=== PATIENT | male | born 1950 | race Hispanic/Latino ===

== ENCOUNTER → 2024-04-29 | Outpatient (CLI) | payer OTHER | END | disposition home or self-care (01) | LOC: RAH 13:04 | PROVIDERS: ATTEND Internal Medicine Cardiovascular Disease | DX: Z13.6 Encounter for screening for cardiovascular disorders (principal) | CPT/HCPCS: 75571 ==

== ENCOUNTER → 2024-09-23 | Outpatient (CLI) | payer OTHER ==
--- NOTE | 2024-09-24 08:26 | HMCSR ---
APPROVED REPORT Laterality: Bilateral Indications PVD VELOCITY AND DOPPLER WAVEFORM ANALYSIS STEEL FLOOR PAN PLACING SUPERVISOR (R) 93.0cm/sec, Triphasic, STEEL FLOOR PAN PLACING SUPERVISOR (L) 88.8cm/sec, Triphasic, Prof Fem Art. (R) 115.8cm/sec, Biphasic, Prof Fem Art. (L) 79.9cm/sec, Biphasic, Fem Art Prox. (R) 97.8cm/sec, Triphasic, Fem Art Prox. (L) 84.0cm/sec, Triphasic, Fem Art Mid. (R) 71.8cm/sec, Triphasic, Fem Art Mid. (L) 90.5cm/sec, Triphasic, Fem Art Dist (R) 96.0cm/sec, Triphasic, Fem Art Dist. (L) 68.3cm/sec, Triphasic, Pop Art(AK) (R) 59.4cm/sec, Triphasic, Pop Art (AK) (L) 53.8cm/sec, Triphasic, Pop Art (Fossa)(R) 59.0cm/sec, Triphasic, Pop Art (Fossa) (L) 60.0cm/sec, Triphasic, Pop Art(BK) (R) 90.5cm/sec, Triphasic, Pop Art (BK) (L) 80.8cm/sec, Triphasic, MEDIA STRATEGIST Prox. (R) 52.7cm/sec, Biphasic, MEDIA STRATEGIST Prox. (L) 44.9cm/sec, Biphasic, MEDIA STRATEGIST Mid. (R) 62.2cm/sec, Biphasic, MEDIA STRATEGIST Mid. (L) 39.0cm/sec, Biphasic, MEDIA STRATEGIST Dist. (R) 42.6cm/sec, Monophasic, MEDIA STRATEGIST Dist. (L) 44.4cm/sec, Biphasic, Per Art Prox. (R) 87.0cm/sec, Biphasic, Per Art Prox. (L) 33.8cm/sec, Biphasic, Per Art Mid. (R) 52.2cm/sec, Biphasic, Per Art Mid. (L) 20.8cm/sec, Monophasic, Per Art Dist. (R) 84.0cm/sec, Biphasic, Per Art Dist. (L) 74.2cm/sec, Monophasic, VY Prox. (R) 98.7cm/sec, Biphasic, VY Prox. (L) 98.7cm/sec, Biphasic, YV Mid. (R) 46.5cm/sec, Monophasic VY Mid. (L) 67.3cm/sec, Biphasic, VY Dist. (R) 44.9cm/sec, Monophasic, VY Dist. (L) 127.3cm/sec, Biphasic, Technologist Impression Diffuse atherosclerosis throughout the bilateral lower extremities. InfraPopliteal disease seen bilaterally. Conclusion Bilateral infrapopliteal disease as above. Conclusion Bilateral infrapopliteal disease as above.
== END | disposition home or self-care (01) ==
LOC: SHCH 10:56
PROVIDERS: ATTEND Internal Medicine Cardiovascular Disease
DX: I73.9 Peripheral vascular disease, unspecified (principal); I70.90 Unspecified atherosclerosis
CPT/HCPCS: 93925

== ENCOUNTER 2024-11-12 05:55 | Day surgery (SDC) | payer OTHER ==
[2024-11-10 15:33] VITALS: BP 111/62; PULSE 75; RESP 14; TEMP 98.1
[2024-11-12] VITALS (9 sets, daily range): BP systolic 121–159; BP diastolic 63–84; PULSE 61–71; RESP 10–16; TEMP 97.2–97.7
[~2024-11-12] VITALS: Ht 177.8 cm; Wt 85.1 kg
[~2024-11-12 05:55] MED LIST: ASPI-1443 PO; CARV25TA PO; METF-444 PO; meclizine PO; rosuvastatin PO; xarelto PO
[2024-11-12] MEDS ORDERED: IODIXANOL 320 MG/ML 100 ML VIAL ONE (07:12)
[2024-11-12] MEDS ORDERED: HEParin-NS 1,000 UNIT/500 ML 1,000 ML IV ONE (07:12)
[2024-11-12] MEDS ORDERED: LIDOCAINE HCL 400MG/20ML VIAL ONE (07:12)
[2024-11-12] MEDS ORDERED: HEParin 10,000 UNIT/10ML (1,000 UNIT/ML) VIAL ONE (07:12)
[2024-11-12] MEDS ORDERED: MIDAZOLAM HCL 1 MG/ML 2ML VIAL ONE ×2 (07:28→09:10)
[2024-11-12] MEDS ORDERED: FENTanyl CITRate PF 50 MCG/1 ML 2ML VIAL ONE (07:28)
[2024-11-12] MEDS ORDERED: NITROGLYCERIN 50MG VIAL ONE (07:29)
[2024-11-12] MEDS: 0.9%NACL 1000ML 1,000 ML IV SCH (07:33)
[2024-11-12] MEDS ORDERED: HEParin-NS 1,000 UNIT/500 ML 500 ML IV ONE (08:48)
[2024-11-12] MEDS ORDERED: cloPIDOgrel 300MG TAB ONE (09:39)
[2024-11-12] MEDS ORDERED: 0.9%NACL 1000ML 1,000 ML IV SCH (10:00)
--- NOTE | 2024-11-12 10:10 | PRN ---
Procedure:Peripheral Angiogram Procedure Note Procedure Note: Peripheral Angiogram Date of Service: 11/12/2024 Referring Physician: Dr. Caity Leon Procedures Performed: Distal abdominal aortogram, right lower extremity peripheral angiogram, left common femoral angiogram Indications for Procedure: PAD, [place] category 3 symptoms (R>L) PAD, s/p multiple peripheral interventions in the arteries of the bilateral lower extremities Description of Procedure: [After informed consent was obtained the patient was prepped and draped in the usual sterile fashion a 6 [place]ic arterial sheath with a hemostatic valve was inserted into the left common femoral artery using a modified Salinger technique on the first pass front wall puncture. A 5 [place]ic Omni Flush catheter was then advanced over a soft angled Glidewire into the abdominal aorta and a lower abdominal aortogram with runoff was obtained. The findings are listed below. The Omni flush catheter was then advanced to the right external iliac artery and a right lower extremity arteriogram was obtained. The findings are listed below.] Findings: Lower abdominal aorta: patent Left common iliac artery: patent Left external iliac artery: patent Left internal iliac artery: patent Left common femoral artery: patent Right common iliac artery: patent Right external iliac artery: patent Right internal iliac artery: patent Right common femoral artery: patent Right profunda artery: patent Right superficial femoral artery: patent Right popliteal artery: patent Right anterior tibial artery: Diffuse 90-95% stenosis the distal segment of the artery Right tibioperoneal artery: patent Right peroneal artery: Diffuse 99% stenosis in the distal segment of the artery Right posterior tibial artery: 100% stenosis (CASE MANAGEMENT RN > 240 mm) in the proximal segments of the artery. The artery does not reconstitute distally Right pedal arch: Incomplete, with slow two-vessel runoff supplying the anterior and posterior segments of the right pedal arch. Intervention: After reviewing the above-mentioned findings the decision was made to intervene on the right anterior tibial and right peroneal artery. The soft angled glidewire was inserted into the Omni flush catheter was advanced to the right popliteal artery. We then removed the Omni flush catheter and exchanged the short six [place]ic arterial sheath for a 65 cm six Icelandic destination arterial sheath, which was then placed in the mid right superficial femoral artery. We then administered heparin 75 units/kg and clopidogrel 600 mg x 1 dose. We then advanced a 0.014 whisper guidewire and 0.014 quick cross catheter across the area stenosis in into the right dorsalis pedis artery. We then removed the whisper guidewire and injected contrast into the quick cross catheter to ensure that we are in the true lumen of the right dorsalis pedis artery. Once this was confirmed bleed reinserted the 0.014 whisper guidewire into the quick cross catheter and placed it in the distal right dorsalis pedis artery. We then removed the quick cross catheter and performed balloon lithotripsy (shockwave 3.0 x 80 mm) and balloon angioplasty (chocolate 3.0 x 80 mm) in the distal right anterior tibial artery. We then advanced a 2nd wire, 0.014 Fielder XT, into the distal right peroneal artery. We then performed balloon angioplasty (2.0 x 80 mm > chocolate 2.5 x 80 mm) and balloon lithotripsy (shockwave 3.0 x 80 mm) in the distal right peroneal artery. The balloons were then removed and repeat angiography was performed, which revealed a widely patent right anterior tibial artery and right peroneal artery, without dissection, or perforation, and brisk two-vessel runoff supplying the right foot/pedal arch. The guidewires and 65 cm six Icelandic destination arterial sheath were then removed and the arteriotomy site in the left common femoral artery was successfully closed using a six Fr ench Angio-Seal device. The patient tolerated the procedure well without issue. Estimated Blood Loss: [40]mL Complications: [ None] Conclusion: 1. PAD, [place] category 3 symptoms (R > L), diffuse 90-95% stenosis in the distal right anterior tibial artery status post successful treatment with balloon lithotripsy and balloon angioplasty, diffuse 90-95% stenosis in the distal right peroneal artery status post successful treatment with balloon angioplasty and balloon lithotripsy, resulting in widely patent arteries, without dissection, perforation, and brisk two-vessel runoff supplying the right foot/pedal arch. 2. Residual PAD, 100% stenosis in the proximal right posterior tibial artery. The artery does not reconstitute distally and thus is not amenable to percutaneous intervention. 3. Essential PAD affecting the left lower extremity. 4. HTN 5. HLP 6. DM2 Recommendations/Instructions: 1. Continue goal-directed medical therapy. 2. Continue aspirin 81 mg daily and Xarelto 2.5 mg BID. 3. Groin precautions 4. 4 hours of bedrest 5. Please start NS at 100 mL/hr x 3 hours 6. No driving x 48 hours 7. No strenuous activity or heavy lifting x 2 weeks. 8. The patient can be discharged home once his bedrest is compete and his femoral access site remains soft to palpation and free of significant bleeding, bruising, or hematoma formation. 9. We will bring the patient back within the next two weeks to address the residual PAD in the left lower extremity. CAITY LEON MD Nov 12, 2024 10:10
--- NOTE | 2024-11-12 13:45 | NUR ---
Full and complete discharge instructions given to Patient and Family both verbally and in writing. Explained Angiogram procedure precautions and follow up. All questions answered. PIV removed with catheter tip intact. Groin site and clean, dry without any sign of bleeding, bruising or hematoma. Home with Family W/C to POV.
== END 2024-11-12 14:00 | disposition home or self-care (01) ==
LOC: DAH 05:55
PROVIDERS: ATTEND Internal Medicine Cardiovascular Disease
DX: E11.51 Type 2 diabetes mellitus with diabetic peripheral angiopathy without gangrene (principal); I70.211 Atherosclerosis of native arteries of extremities with intermittent claudication, right leg; I10 Essential (primary) hypertension; E78.5 Hyperlipidemia, unspecified; G47.33 Obstructive sleep apnea (adult) (pediatric); I25.10 Atherosclerotic heart disease of native coronary artery without angina pectoris; Z79.899 Other long term (current) drug therapy; Z79.84 Long term (current) use of oral hypoglycemic drugs; Z98.890 Other specified postprocedural states; Z96.641 Presence of right artificial hip joint; Z83.3 Family history of diabetes mellitus; Z82.49 Family history of ischemic heart disease and other diseases of the circulatory system
CPT/HCPCS: 75630; 85347 ×2; 82948; C9772; C1887; C1725 ×4; C1894 ×2; C1769 ×3; C1760; C1893; J3010; J3490 ×2; J1644 ×3; J2250 ×2; Q9967; A4215; A4222; A4221; A4663; A4216; A4606; A4223 ×3; 36415; 75716; 96360; 96361; 99156; 99157

== ENCOUNTER 2025-05-21 10:28 | Inpatient (IN) | payer OTHER ==
[~2025-05-21] VITALS: Ht 177.8 cm; Wt 81.6 kg
[~2025-05-21 10:28] MED LIST changes: +MECL-226 PO; +ROSU10TA98 PO; -meclizine PO; -rosuvastatin PO
--- NOTE | 2025-05-21 10:39 | EKG ---
[facility] Test Date: 2025-05-21 Test Time: 10:34:05 Pat Name: MIGUEL ANGEL TUBBS Department: [facility] Room: Gender: M Signal Repairer: [id number] : 1950 Requested By: SHANEKA ODEN Order Number: [id number] Reading MD: Elaine Walton Measurements Intervals [place] Rate: 73 P: 12 TN: 219 QRS: -10 QRSD: 89 T: 39 QT: 367 QTc: 406 Interpretive Statements Sinus rhythm Borderline prolonged TN interval No previous ECG available for comparison Electronically Signed On 05-21-2025 13:12:57 CDT by Elaine Walton Please click the below link to view image of tracing.
[2025-05-21 11:20] LABS: IMMATURE GRANULOCYTE ABSOLUTE 0.02 K/uL (0-1); NUCLEATED RED BLOOD CELLS 0.0 % (0.0-0.19); PLATELET COUNT (AUTO) 153 K/uL (130-400); RED BLOOD CELL COUNT(AUTO) 4.16 MIL/uL (4.50-6.20); RED CELL DISTRIBUTION WIDTH 11.8 % (11.0-15.5); WHITE BLOOD COUNT (AUTO) 6.8 K/uL (4.8-10.8)
--- NOTE | 2025-05-21 11:32 | HMCIMG ---
CHEST 1VW REASON: cp COMPARISON: None. FINDINGS: Single view of the chest was obtained. Lungs are clear. Heart size is normal. There is no pulmonary vascular congestion. Mediastinum and bony thorax appear unremarkable. IMPRESSION: 1. No acute cardiopulmonary process..
[2025-05-21 12:04] LABS: ASPARTATE AMINOTRANSFERASE 17.0 U/L (10-37); CREATININE 0.7 mg/dL (0.5-1.3); GLOMERULAR FILTR. RATE CALC 95.0 mL/min (>90); GLUCOSE,RANDOM 111.0 mg/dL (70-105); SODIUM SERUM 137.0 mmol/L (136-145); TOTAL PROTEIN, SERUM 6.9 g/dL (6.0-8.3); UREA NITROGEN, BLOOD 8.0 mg/dL (7-18)
[2025-05-21] MEDS ORDERED: NITROGLYCERIN 0.4 MG SL TAB SL PRN (13:30)
[2025-05-21] MEDS: ASPIRIN 81 MG EC TAB PO ONE (13:33)
[2025-05-21 13:54] LABS: LDL DIRECT 45.0 mg/dL (0-99)
--- NOTE | 2025-05-21 14:15 | HP ---
[facility] HISTORY AND PHYSICAL Date of Service: May 21, 2025 Time of Service: 14:09 HISTORY OF PRESENT ILLNESS: Date Of service: 05/21/2025, patient was seen in ER room 18 This is a 74-year-old male with underlying history of hypertension, hyperlipidemia, history of peripheral arterial disease with prior history of lower extremity angioplasty and stenting, who presented to the ER for further evaluation of nonresolving chest pain. Symptoms have been ongoing for the past two days, pain is located in the substernal region with associated symptoms of dyspepsia and reflux. Initially two days ago, pain was mild in intensity but this morning, pain was severe in intensity relieved by patient taking nitroglycerin. Pain on bedside interview currently is minimal and patient rates it as a 0-1/10 in severity. Patient states that he is followed by Dr. Ibrahim with Cardiology as outpatient. He has family history of significant coronary artery disease with multiple brothers in the family having history of heart attack. He has a previous history of cardiac CT, heart Saver screening done in 04/2024 with a calcium score noted to be at 3027.8. Patient states that he was he had a Lexiscan stress test following abnormal heart Saver results. Patient states that he was told that he did not need further testing following lexiscan study. Chest pain is worsened with positional activities. Patient denies any trauma to the chest. Denies any pleurisy either. Patient does report having previous history of significant peripheral arterial disease and has had angiogram and angioplasty done by Dr. Leon previous On presentation to the hospital, patient was noted to be afebrile with T-max of 98.2 F, heart rate of 89, blood pressure 149/75. Labs on presentation showed WBC count of 6800, hemoglobin of 14.0, platelet count of 158250. BMP showed sodium of 137, potassium 4.1, chloride of 97, BUN of eight, creatinine of 0.7, magnesium 1.8, high sensitivity troponin was noted to be negative at six. Will be admitted for further treatment and management, symptoms are concerning for unstable angina. Consultation with Cardiology will be requested this admission. REVIEW OF SYSTEMS CONSTITUTIONAL: Denies fevers, chills, or night sweats. No unintentional weight loss reported. NEUROLOGICAL: Denies headache, amaurosis fugax, motor weakness, sensory deficit, vertigo/spinning sensation, gait abnormalities, or tremors. ENT: No hearing loss, otalgia, otorrhea, rhinitis, rhinorrhea, hoarseness, or sore throat. CARDIOVASCULAR: Chest pain ongoing for the past two days and has worsened today, relieved with nitroglycerin PULMONARY: Denies any shortness of breath, cough, phlegm/sputum, hemoptysis, pleuritic chest pain. SLEEP: Denies morning headaches, daytime somnolence or napping. Denies difficulty falling asleep, staying asleep, waking from sleep. Denies knowledge of snoring. GASTROINTESTINAL: Denies any type of dysphagia to either liquids or solids. Denies nausea, vomiting, pyrosis, early satiety, abdominal pain, diarrhea, constipation, or changes in stool consistency or caliber. Denies coffee-ground emesis, hematemesis, hematochezia, or melanotic stools. GENITOURINARY: Denies frequency, urgency, nocturia, hematuria or incontinence (Storage/Irritative symptoms.) Low urinary stream, straining to void, urinary intermittency or hesitancy, splitting of the voiding stream, terminal dribbling. ENDOCRINOLOGIC: Denies polyuria, polydipsia, polyphagia or heat/cold intolerances. HEMATOLOGIC: Denies thrombophilia/previous clots, or coagulopathy/bleeding disorders. ONCOLOGIC: Denies personal history of malignancy. DERMATOLOGIC: Denies rashes or pruritus. PSYCHIATRIC: Denies any suicidal or homicidal ideation. Denies hallucinations. PAST MEDICAL HISTORY: Hypertension, hyperlipidemia, peripheral arterial disease, history of previous abnormal Lexiscan stress test, type 2 diabetes mellitus, family history of premature coronary artery disease PAST SURGICAL HISTORY: History of right hip arthroplasty, history of colectomy for diverticulitis, history of ankle fracture requiring operative reduction, history of peripheral angiogram and angioplasty previously for severe PAD PAST SOCIAL HISTORY: Currently denies active smoking, patient reports drinking 4-5 beers on the [employer] FAMILY HISTORY: Multiple members in the family including brothers having history of heart attack Allergies: No known drug allergies Home medications: Patient reports being on ssygilw30 mg daily, Xarelto 2.5 mg twice daily, and multiple other medications, he will be bringing home medications to be updated Coded Allergies: No Known Drug Allergies (Unverified Allergy, Unknown, 11/04/24) PHYSICAL EXAM GENERAL APPEARANCE: The patient is awake, alert, and oriented, in no acute cardiopulmonary distress. NEUROLOGICAL: Cranial nerves II-XII grossly intact. Motor is 5/5 in bilateral upper and lower extremities proximal to distal. No sensory deficits. HEENT: Face is symmetric. Pupils are equal and reactive. Extraocular movements are intact. NECK: Supple. No JVD. No thyromegaly. No submental, submandibular, pre- /postauricular, occipital or supraclavicular lymphadenopathy. CHEST: Normal chest expansion. No Telemetry. LUNGS: Absence of any rales, rhonchi or any wheezing. CARDIOVASCULAR: Regular. S1 and S2 normal. No appreciable rubs, murmurs or gallops. ABDOMEN: Soft, nontender, and nondistended. There is no rebound, voluntary guarding, or rigidity. : Deferred. No Nielsen. EXTREMITIES: Non-edematous and not cyanotic. No clubbing. Good capillary refill. SKIN: No skin breakdown. Vital Sign (Last 24 Hours) 05/21/25 12:24 Temp 98.1 Pulse 71 Resp 11 B/P (MAP) 147/76 Pulse Ox 100 O2 Delivery Room Air* O2 Flow Rate 0 FiO2 21 LABS: Laboratory: Test 05/21/25 11:37 05/21/25 11:34 05/21/25 10:58 Range/Units Sodium Level 137 136-145 mmol/L Potassium Level 4.1 3.5-5.1 mmol/L Chloride Level 97 L 101-111 mmol/L Carbon Dioxide Level 28 21-32 mmol/L Blood Urea Nitrogen 8 7-18 mg/dL Creatinine 0.7 0.5-1.3 mg/dL Glomerular Filtration Rate Calc 95 >90 mL/min Random Glucose 111 H 70-105 mg/dL Total Calcium 9.1 8.5-10.1 mg/dL Total Bilirubin 0.5 0.2-1.0 mg/dL Direct Bilirubin 0.2 0.0-0.3 mg/dL Aspartate Amino Transf (AST/SGOT) 17 10-37 U/L Alanine Aminotransferase (ALT/SGPT) 32 12-78 U/L Alkaline Phosphatase 63 50-136 U/L Total Protein 6.9 6.0-8.3 g/dL Albumin 4.0 3.5-5.0 g/dL Hemoglobin A1c 6.1 H 4.0-6.0 % Estimated Average Glucose (eAG) 128 H 70-126 mg/dL Magnesium Level 1.80 1.80-2.40 mg/dL Triglycerides Level 44 30-200 mg/dL Cholesterol Level 142 <200 mg/dL LDL Cholesterol 45 0-99 mg/dL HDL Cholesterol 82 H 29-71 mg/dL Thyroid Stimulating Hormone (TSH) 0.59 0.36-3.74 uIU/mL White Blood Count 6.8 4.8-10.8 K/uL Red Blood Count 4.16 L 4.50-6.20 MIL/uL Hemoglobin 14.0 14.0-18.0 g/dL Hematocrit 39.7 L 42-54 % Mean Corpuscular Volume 95.4 79-99 fL Mean Corpuscular Hemoglobin 33.7 H 27.0-33.0 pg Mean Corpuscular Hemoglobin Concent 35.3 32.0-36.0 g/dL Red Cell Distribution Width 11.8 11.0-15.5 % Platelet Count 153 130-400 K/uL Mean Platelet Volume 9.5 7.5-10.5 fL Immature Granulocyte % (Auto) 0.3 0-1 % Neutrophils (%) (Auto) 67.6 40.0-77.0 % Lymphocytes (%) (Auto) 19.8 L 21.0-51.0 % Monocytes (%) (Auto) 10.4 3.0-13.0 % Eosinophils (%) (Auto) 1.2 0.0-8.0 % Basophils (%) (Auto) 0.7 0.0-5.0 % Neutrophils # (Auto) 4.6 1.8-7.7 K/uL Lymphocytes # (Auto) 1.4 1.0-4.8 K/uL Monocytes # (Auto) 0.7 0.1-1.0 K/uL Eosinophils # (Auto) 0.08 0.00-0.70 K/uL Basophils # (Auto) 0.05 0.00-0.20 K/uL Absolute Immature Granulocyte (auto 0.02 0-1 K/uL Nucleated Red Blood Cells 0.0 0.0-0.19 % Troponin I High Sensitivity 6 4-75 ng/L B-Type Natriuretic Peptide 33 0-100 pg/mL Current Medications Medications (Trade) Dose Ordered Sig/Ann Route PRN Reason Start Time Stop Time Status Last Admin Dose Admin Acetaminophen (TYLenol 325MG TAB) 650 mg Q6H PRN PO MILD PAIN (1-3) 05/21/25 13:30 06/20/25 13:29 Amlodipine Besylate (NorvASC 5MG TAB) 5 mg DAILY PO 05/22/25 09:00 06/21/25 08:59 Aspirin (Aspirin 81mg Ec Tab) 81 mg DAILY PO 05/22/25 09:00 06/21/25 08:59 Carvedilol (Coreg 25MG) 25 mg BID PO 05/21/25 21:00 05/21/25 14:00 DC Enoxaparin Sodium (Lovenox) 40 mg DAILY SQ 05/22/25 09:00 06/21/25 08:59 Insulin Human Regular (humuLIN R 100 UNIT/ML 3ML) INSULIN SLIDING SCAL... ACHS SQ 05/21/25 16:30 06/20/25 16:29 Nitroglycerin (Nitrostat) 0.4 mg AD PRN SL CHEST PAIN 05/21/25 13:30 06/20/25 13:29 Ondansetron HCl (zoFRAN 4MG INJ) 4 mg Q6H PRN IVP NAUSEA/VOMITING 05/21/25 13:30 06/20/25 13:29 Pantoprazole Sodium (PROTonix 40MG INJ) 40 mg Q24H IVP 05/21/25 13:30 06/20/25 13:29 05/21/25 13:33 40 MG DIAGNOSTICS / RADIOLOGY: SERVICE 1052 REASON: cp ORDERING PHYSICIAN: SHANEKA ODEN MD PROCEDURE: CXR1VW - CHEST 1VW CHEST 1VW REASON: cp COMPARISON: None. FINDINGS: Single view of the chest was obtained. Lungs are clear. Heart size is normal. There is no pulmonary vascular congestion. Mediastinum and bony thorax appear unremarkable. IMPRESSION: 1. No acute cardiopulmonary process.. DICTATED BY: OLEKSANDR REEVES MD DATE: 05/21/251128 ELECTRONICALLY SIGNED BY: OLEKSANDR REEVES MD DATE: 05/21/25 1132 ASSESSMENT: Chest pain with features of unstable angina, POA Family history of premature coronary artery disease, POA History of peripheral arterial disease with prior history of angioplasty and stenting of the lower extremities, POA Hypertension, POA Hyperlipidemia, POA Type 2 diabetes mellitus, POA PLAN: Patient will be admitted to cardiac telemetry floor Patient presenting with two day history of worsening chest pain concerning for unstable angina, initial cardiac troponin is negative, we will trend cardiac panel to rule out active ACS, patient has a previous abnormal heart saver study as well as has had a Lexiscan stress test as outpatient We will obtain 2D echocardiogram Continue with aspirin 81 mg daily, we will hold PAD dose Xarelto today in case of any plans for invasive evaluation/ cardiac catheterization this admission, will resume Xarelto if there is no plans of invasive evaluation tomorrow Continue with antihypertensives once medication list is available We will keep patient on Lipitor 40 mg daily Consultation with Cardiology will be requested We will maintain potassium greater than four and magnesium greater than two We will keep patient on sliding scale insulin a.c. and HS All labs will be repeated in the morning, we will await further evaluation by Cardiology for further cardiac workup We will keep patient on DVT prophylaxis with Lovenox, GI prophylaxis with Protonix Date of service: 05/21/2025 Plan of care was discussed with patient at bedside, Cristhian Haji MD Advanced Care Planning: Which of the following were discussed: Hospice care: Yes __ No _X_ Therapeutic options: Yes _X_ No __ Advance directives: Yes _X_ No __ Other discussions: Discussed with who?: Patient Voluntary nature of this service was explained to the patient? Yes _x_ No __ Amount of time spent: 20 minutes CRISTHIAN HAJI MD May 21, 2025 14:15
[2025-05-21] MEDS ORDERED: AMLO-257 PO (14:34)
[2025-05-21 14:45] LABS: APPEARANCE,URINE CLEAR (CLEAR); GLUCOSE, URINE (UA) NEGATIVE (NEGATIVE); LEUKOCYTE ESTERASE ,URINE NEGATIVE Leu/uL (NEGATIVE); NITRATE,URINE NEGATIVE (NEGATIVE); OCCULT BLOOD,URINE NEGATIVE (NEGATIVE)
[2025-05-21 14:46] LABS: ADD UA MICROSCOPIC YES
[2025-05-21 14:48] LABS: SQUAMOUS EPITHELIAL CELL,UR RARE /HPF (0-2); UNCLASSIFIED CRYSTAL 1 /HPF (None Seen)
--- NOTE | 2025-05-21 15:03 | CONS ---
[facility] CARDIOLOGY CONSULTATION REPORT Cardiology consultation note dictated for Elaine Walton MD Primary tarp repairer: Pasquale Leon MD Date Patient Seen: May 21, 2025 Requesting Physician: Velasquez Haji MD Reason for Consultation: Chest pain History of Present Illness: This is a 74-year-old male with a past medical history of hypertension, dyslipidemia, cardiac calcium score of 3028 drawn 03/2024, normal Lexiscan stress test in 04/2024, PAD with multiple procedures by PAD specialist in [place], and obstructive sleep apnea intolerant to CPAP therapy who presented to the ED with complaints of chest pain. The patient endorsed a two day history of constant left-sided chest discomfort described as sharp in quality with waxing and waning in intensity with a 5/10 intensity at its worst. Accompanying symptoms include belching, nausea, and dizziness. Aggravating factors include stress, movement and deep breathing. Sublingual nitroglycerin helps decrease pain intensity but does not relieve symptoms. He denies GUILLEN, orthopnea, PND, palpitations, diaphoresis, vomiting, or syncope. Troponin negative x1, pending next lab draw at 1600 and 2200. EKG on admission demonstrated NSR/1st degree AVB with a hr of 69bpm, possible old inferior infarct with no acute ischemia noted. Past Medical History: As per HPI and summarized below Past Surgical History: Right ankle surgery Colon surgery Right hip surgery Family History: The patient's father had hypertension, diabetes mellitus type 2, and from myocardial infarction. The patient's mother had diabetes mellitus type 2 and hypertension. Social History: The patient lives with family. Habits: The patient denies alcohol, tobacco, drug use. Home Meds: Aspirin 81 mg daily Carvedilol 25 mg daily Amlodipine 5 mg daily Rosuvastatin 10 mg daily Xarelto 2.5 mg b.i.d. Meclizine 25 mg daily Metformin 500 mg b.i.d. Current Meds: Medications Dose Ordered Sig/Ann Start Time Stop Time Status Last Admin Aspirin 81 mg DAILY 05/22/25 09:00 06/21/25 08:59 Nitroglycerin 0.4 mg AD PRN 05/21/25 13:30 06/20/25 13:29 Acetaminophen 650 mg Q6H PRN 05/21/25 13:30 06/20/25 13:29 Ondansetron HCl 4 mg Q6H PRN 05/21/25 13:30 06/20/25 13:29 Pantoprazole Sodium 40 mg Q24H 05/21/25 13:30 06/20/25 13:29 05/21/25 13:33 Insulin Human Regular INSULIN SLIDING SCAL... ACHS 05/21/25 16:30 06/20/25 16:29 Enoxaparin Sodium 40 mg DAILY 05/22/25 09:00 06/21/25 08:59 Amlodipine Besylate 5 mg DAILY 05/22/25 09:00 06/21/25 08:59 Magnesium Sulfate 50 ml @ 0 mls/hr PROTOCOL 05/21/25 14:30 06/20/25 14:29 Carvedilol 25 mg BID 05/21/25 21:00 06/20/25 20:59 Meclizine HCl 25 mg DAILY 05/22/25 09:00 06/21/25 08:59 Review of Systems: CONST: No fever, fatigue, or weight changes. EYES: No recent vision problems. ENT: No congestion, ear pain, or sore throat. C/V: Admits to left sided chest discomfort RESP: No cough, congestion, wheezing or shortness of breath. GI: No abdominal pain, nausea, vomiting, constipation, or diarrhea. : No incontinence or dysuria. SKIN: No rash. NEURO: No headache, focal numbness or weakness, dizziness, or seizures. PSYCH: No depression or anxiety. HEME: No abnormal bruising or bleeding. LYMPH: No swollen glands. Physical Examination: GENERAL: No acute distress. HEAD: Normal with no signs of head trauma. EYES: PERRLA, EOMI, conjunctiva and sclera normal. ENT: Hearing grossly intact, normal oropharynx. NECK: Supple without JVD. There is no tenderness, lymphadenopathy, or masses. No thyromegaly. Normal carotid upstrokes without bruits. LUNGS: Clear breath sounds bilaterally. No wheezes, or rhonchi. HEART: Normal rate and rhythm. Normal S1 and S2 without murmurs, gallop or rub. VASC: Peripheral pulses +2 bilaterally. ABD: Bowel sounds normal, soft, nontender, no masses, no organomegaly. No audible bruits. : Not examined LYMPH: No lymphadenopathy noted. EXT: No clubbing, cyanosis or edema. SKIN: No rashes or lesions noted. NEURO: Awake, alert, and oriented x3. No focal sensory or strength deficits noted. Vital Signs (last 8hr) Date Time Temp Pulse Resp B/P (MAP) Pulse Ox O2 Delivery O2 Flow Rate FiO2 05/21/25 12:24 98.1 71 11 147/76 100 Room Air* 0 21 05/21/25 11:06 98.1 76 12 140/78 100 Room Air* 0 21 05/21/25 10:32 98.2 89 18 149/75 99 Room Air* 0 21 05/21/25 10:29 98.2 89 18 149/75 99 Room Air 0 Laboratory: Hematology Labs: Test 05/21/25 10:58 Range/Units White Blood Count 6.8 4.8-10.8 K/uL Red Blood Count 4.16 L 4.50-6.20 MIL/uL Hemoglobin 14.0 14.0-18.0 g/dL Hematocrit 39.7 L 42-54 % Mean Corpuscular Volume 95.4 79-99 fL Mean Corpuscular Hemoglobin 33.7 H 27.0-33.0 pg Mean Corpuscular Hemoglobin Concent 35.3 32.0-36.0 g/dL Red Cell Distribution Width 11.8 11.0-15.5 % Platelet Count 153 130-400 K/uL Mean Platelet Volume 9.5 7.5-10.5 fL Immature Granulocyte % (Auto) 0.3 0-1 % Neutrophils (%) (Auto) 67.6 40.0-77.0 % Lymphocytes (%) (Auto) 19.8 L 21.0-51.0 % Monocytes (%) (Auto) 10.4 3.0-13.0 % Eosinophils (%) (Auto) 1.2 0.0-8.0 % Basophils (%) (Auto) 0.7 0.0-5.0 % Neutrophils # (Auto) 4.6 1.8-7.7 K/uL Lymphocytes # (Auto) 1.4 1.0-4.8 K/uL Monocytes # (Auto) 0.7 0.1-1.0 K/uL Eosinophils # (Auto) 0.08 0.00-0.70 K/uL Basophils # (Auto) 0.05 0.00-0.20 K/uL Absolute Immature Granulocyte (auto 0.02 0-1 K/uL Nucleated Red Blood Cells 0.0 0.0-0.19 % Chemistry Labs: Test 05/21/25 11:37 05/21/25 11:34 05/21/25 10:58 Range/Units Sodium Level 137 136-145 mmol/L Potassium Level 4.1 3.5-5.1 mmol/L Chloride Level 97 L 101-111 mmol/L Carbon Dioxide Level 28 21-32 mmol/L Blood Urea Nitrogen 8 7-18 mg/dL Creatinine 0.7 0.5-1.3 mg/dL Glomerular Filtration Rate Calc 95 >90 mL/min Random Glucose 111 H 70-105 mg/dL Total Calcium 9.1 8.5-10.1 mg/dL Total Bilirubin 0.5 0.2-1.0 mg/dL Direct Bilirubin 0.2 0.0-0.3 mg/dL Aspartate Amino Transf (AST/SGOT) 17 10-37 U/L Alanine Aminotransferase (ALT/SGPT) 32 12-78 U/L Alkaline Phosphatase 63 50-136 U/L Total Protein 6.9 6.0-8.3 g/dL Albumin 4.0 3.5-5.0 g/dL Hemoglobin A1c 6.1 H 4.0-6.0 % Estimated Average Glucose (eAG) 128 H 70-126 mg/dL Magnesium Level 1.80 1.80-2.40 mg/dL Triglycerides Level 44 30-200 mg/dL Cholesterol Level 142 <200 mg/dL LDL Cholesterol 45 0-99 mg/dL HDL Cholesterol 82 H 29-71 mg/dL Thyroid Stimulating Hormone (TSH) 0.59 0.36-3.74 uIU/mL Troponin I High Sensitivity 6 4-75 ng/L B-Type Natriuretic Peptide 33 0-100 pg/mL Diagnostics / Radiology: Impression and Plan: Chest pain with atypical features Presumed CAD based off of cardiac calcium score of 3028 drawn 03/2024 with normal Lexiscan stress test in 04/2024 Hypertension Dyslipidemia PAD with multiple procedures by PAD specialist in [place] Obstructive sleep apnea intolerant to CPAP therapy Chest pain with atypical features Troponin negative x1, pending next lab draw at 1600 and 2200 EKG without no acute ischemia -Obtain Lexiscan stress test in AM -Pending 2D Echocardiogram JAMES DOMINGUEZ HEALTH DIRECTOR May 21, 2025 15:03
--- NOTE | 2025-05-21 15:23 | NUR ---
REPORT GIVEN TO SUZANNE CAGLE, MERARY SENT WITH PATIENT
--- NOTE | 2025-05-21 15:39 | NUR ---
DCP:HOME Pt currently lives with his Niyah Martel [phone]. Pt does not have any DME, home health, or provider services. Pt states that she can complete ADLs independently. PCP is Marco Antonio Kang ([facility]) and [facility]. At [place] pt will want to go home and family can assist with transportation. Addendum: 05/21/25 at 1555 by OWEN SMALLWOOD SS Amended: Links added.
[2025-05-21 16:15] VITALS: BP 157/83; PULSE 72; RESP 20; TEMP 98.7
--- NOTE | 2025-05-21 16:20 | ERN ---
ED Note History of Present Illness Stated Complaint: NON RESOLVING CHEST PAIN,HX OF PAD,CONCERNS FOR AN Chief Complaint: Chest Pain Time Seen by MD: 10:51 Dictation: 74-year-old male presenting to the emergency department with past medical history of hypertension and diabetes longstanding family history with coronary artery disease. Patient reported chest pain on and off since yesterday worse today Allergies: Coded Allergies: No Known Drug Allergies (Unverified Allergy, Unknown, 11/04/24) Home Meds Reported Medications Amlodipine Besylate (Amlodipine Besylate) 5 Mg Tablet, 5 MG PO DAILY, TAB 05/21/25 Meclizine HCl (Meclizine HCl) 12.5 Mg Tablet, 25 MG PO DAILY, TAB 12/01/24 Rosuvastatin Calcium (Rosuvastatin Calcium) 10 Mg Tablet, 10 MG PO DAILY, TAB 12/01/24 [xarelto] No Conflict Check, 2.5 MG PO BID 11/04/24 Aspirin (Aspirin EC) 81 Mg Tablet.dr, 81 MG PO AM, TAB 11/04/24 Metformin HCl (Metformin HCl) 500 Mg Tablet, 500 MG PO BID, TAB 11/04/24 Carvedilol (Carvedilol) 25 Mg Tablet, 25 MG PO BID, TAB 11/04/24 Past Medical History Past Medical History: A-Fib, Diabetes-Type II, High Cholesterol, Heart Disease, Other Additional Past Medical Hx: pad Surgical History: Other Surgical History Other: right knee sx, right ankle Review of System Dictation Constitutional: Negative for fever,chills, and weight loss Eyes: Negative for injury, pain,redness, and discharge ENT: Negative for injury,pain or swelling Cardiovascular: Per HPI Respiratory: Negative for shortness of breath, cough, and wheezing, Abdomen/GI: Negative for abdominal pain, nausea, vomiting, diarrhea, and constipation Back: Negative for injury and pain : Negative for injury, bleeding and discharge MS/Extremity: Negative for injury and deformity Skin: Negative for rash, and discoloration Neuro: Negative for headache, weakness, numbness, tingling, and seizure Psych: Negative for suicide ideation, homicidal ideation, and hallucinations Initial Vital Sign VS Vital Signs Date Time Temp Pulse Resp B/P (MAP) Pulse Ox O2 Delivery O2 Flow Rate FiO2 05/21/25 10:29 98.2 89 18 149/75 99 Room Air 0 05/21/25 10:32 21 Physical Exam Dictation General: awake, alert, NAD Head/Face: Normocephalic, atraumatic Eyes: PERRL, EOMI, vision at baseline ENT: oral cavity clear, TMs clear, no signs of infection Neck: Trachea midline, supple, no nuchal rigidity Cardiovascular: RRR, normal S1/S2, No MRGs, no JVD Respiratory: CTAB, no respiratory distress, No rales or wheezes Abdomen: Soft, non-tender, non-distended, normal bowel sounds, no guarding or rebound. Skin: Warm, dry, normal turgor, no rash MS/Extremity: Pulses equal, no cyanosis, neurovascular intact, FROM Neuro: COAx4, GCS 15, strength 5/5, CN 2-12 intact, normal cerebellar exam, normal gait, Psych: Normal behavior, mood, and affect normal Results (Laboratory/Radiology) Laboratory/Radiology Laboratory Tests Test 05/21/25 10:58 05/21/25 11:34 05/21/25 11:37 05/21/25 14:40 White Blood Count 6.8 K/uL (4.8-10.8) Red Blood Count 4.16 MIL/uL (4.50-6.20) L Hemoglobin 14.0 g/dL (14.0-18.0) Hematocrit 39.7 % (42-54) L Mean Corpuscular Volume 95.4 fL (79-99) Mean Corpuscular Hemoglobin 33.7 pg (27.0-33.0) H Mean Corpuscular Hemoglobin Concent 35.3 g/dL (32.0-36.0) Red Cell Distribution Width 11.8 % (11.0-15.5) Platelet Count 153 K/uL (130-400) Mean Platelet Volume 9.5 fL (7.5-10.5) Immature Granulocyte % (Auto) 0.3 % (0-1) Neutrophils (%) (Auto) 67.6 % (40.0-77.0) Lymphocytes (%) (Auto) 19.8 % (21.0-51.0) L Monocytes (%) (Auto) 10.4 % (3.0-13.0) Eosinophils (%) (Auto) 1.2 % (0.0-8.0) Basophils (%) (Auto) 0.7 % (0.0-5.0) Neutrophils # (Auto) 4.6 K/uL (1.8-7.7) Lymphocytes # (Auto) 1.4 K/uL (1.0-4.8) Monocytes # (Auto) 0.7 K/uL (0.1-1.0) Eosinophils # (Auto) 0.08 K/uL (0.00-0.70) Basophils # (Auto) 0.05 K/uL (0.00-0.20) Absolute Immature Granulocyte (auto 0.02 K/uL (0-1) Nucleated Red Blood Cells 0.0 % (0.0-0.19) Troponin I High Sensitivity 6 ng/L (4-75) B-Type Natriuretic Peptide 33 pg/mL (0-100) Hemoglobin A1c 6.1 % (4.0-6.0) H Estimated Average Glucose (eAG) 128 mg/dL (70-126) H Magnesium Level 1.80 mg/dL (1.80-2.40) Triglycerides Level 44 mg/dL (30-200) Cholesterol Level 142 mg/dL (<200) LDL Cholesterol 45 mg/dL (0-99) HDL Cholesterol 82 mg/dL (29-71) H Thyroid Stimulating Hormone (TSH) 0.59 uIU/mL (0.36-3.74) Sodium Level 137 mmol/L (136-145) Potassium Level 4.1 mmol/L (3.5-5.1) Chloride Level 97 mmol/L (101-111) L Carbon Dioxide Level 28 mmol/L (21-32) Blood Urea Nitrogen 8 mg/dL (7-18) Creatinine 0.7 mg/dL (0.5-1.3) Glomerular Filtration Rate Calc 95 mL/min (>90) Random Glucose 111 mg/dL (70-105) H Total Calcium 9.1 mg/dL (8.5-10.1) Total Bilirubin 0.5 mg/dL (0.2-1.0) Direct Bilirubin 0.2 mg/dL (0.0-0.3) Aspartate Amino Transf (AST/SGOT) 17 U/L (10-37) Alanine Aminotransferase (ALT/SGPT) 32 U/L (12-78) Alkaline Phosphatase 63 U/L (50-136) Total Protein 6.9 g/dL (6.0-8.3) Albumin 4.0 g/dL (3.5-5.0) Urine Color LIGHT-YELLOW (YELLOW) Urine Appearance CLEAR (CLEAR) Urine pH 7.0 (5.0-8.0) Urine Specific [place] 1.008 (1.001-1.031) Urine Protein NEGATIVE mg/dL (NEGATIVE) Urine Glucose (UA) NEGATIVE mg/dL (NEGATIVE) Urine Ketones 20 mg/dL (NEGATIVE) H Urine Occult Blood NEGATIVE (NEGATIVE) Urine Nitrate NEGATIVE (NEGATIVE) Urine Bilirubin NEGATIVE mg/dL (NEGATIVE) Urine Urobilinogen 0.2 mg/dL (0.2-1.0) Urine Leukocyte Esterase NEGATIVE Hemant/uL Urine RBC 0-1 /HPF (0-1) Urine WBC 0-1 /HPF (0-1) Urine Squamous Epithelial Cells RARE /HPF (0-2) Urine Other Crystals (Auto) 1 /HPF (None Seen) Urine Bacteria None /HPF (None Seen) Labs Reviewed?: Yes EKG Comment: Heart rate 76 normal sinus rhythm no STEMI or STEMI equivalent ED Course ED Course Orders Procedure Category Date Status Time 12 Lead Ekg Tracing- EKG 05/21/25 Resulted Technical 10:34 B-Type Natriuretic LAB 05/21/25 Complete Peptide 10:52 Cbc With Differential LAB 05/21/25 Complete 10:52 Troponin I High LAB 05/21/25 Complete Sensitivity 10:52 Chest 1vw RAD 05/21/25 Resulted 10:52 Basic Metabolic Panel LAB 05/21/25 Complete 11:31 Hepatic Function Panel LAB 05/21/25 Complete 11:31 Aspirin 81mg Ec Tab PHA 05/21/25 Complete (Aspirin 81mg Ec Tab 13:30 Aspirin 81mg Ec Tab PHA 05/22/25 In Process (Aspirin 81mg Ec Tab 09:00 Admit Orders ADM 05/21/25 Transmitted 13:21 Telemetry Monitoring CPOE 05/21/25 Transmitted 13:21 Urinalysis Profile LAB 05/21/25 Complete 13:21 Thyroid Stimulating LAB 05/21/25 Complete Hormone 13:21 Lipid Panel LAB 05/21/25 Complete 13:21 Hemoglobin A1c LAB 05/21/25 Complete 13:21 Gi Soft/Amlin Diet DIET 05/21/25 Transmitted Lunch *Nursing CPOE 05/21/25 Transmitted Communication: 13:21 Aspiration Precautions CPOE 05/21/25 Transmitted 13:24 Nitroglycerin 0.4mg PHA 05/21/25 In Process Sl Tab (Nitrostat) 13:30 Acetaminophen 325 Tab PHA 05/21/25 In Process (Tylenol 325mg Tab 13:30 Ondansetron 4mg Inj PHA 05/21/25 In Process (Zofran 4mg Inj) 13:30 Carvedilol 25mg PHA 05/21/25 Complete (Coreg 25mg) 21:00 Cardiac Panel LAB 05/21/25 Logged 16:00 Cardiac Panel LAB 05/21/25 Logged 22:00 Pantoprazole 40mg Inj PHA 05/21/25 In Process (Protonix 40mg Inj 13:30 Magnesium LAB 05/21/25 Complete 13:25 Cardiology Consult CONPHYSVC 05/21/25 Transmitted 13:26 Initiate THERESA 05/21/25 In Process Hyperglycemia Protoco 13:27 Insulin Regular, PHA 05/21/25 In Process Human 3ml (Humulin R 16:30 Vital Signs(Adult CPOE 05/21/25 Transmitted Hospitalist) 13:28 I&O Q Shift CPOE 05/21/25 Transmitted 13:28 Activity: Br W/Brp CPOE 05/21/25 Transmitted With Assist 13:28 Enoxaparin Sodium 40 PHA 05/22/25 In Process Mg/0.4 Ml (Lovenox) 09:00 Amlodipine 5 Mg Tab PHA 05/22/25 In Process (Norvasc 5mg Tab) 09:00 Echo 2-D Complete ECHO 05/21/25 Logged 14:06 Magnesium 2gm Premix PHA 05/21/25 In Process 50ml (Magnesium 2gm 14:30 Cbc With Differential LAB 05/22/25 Verified 04:00 Basic Metabolic Panel LAB 05/22/25 Verified 04:00 Magnesium LAB 05/22/25 Verified 04:00 Carvedilol 25mg PHA 05/21/25 In Process (Coreg 25mg) 21:00 Meclizine Hcl 12.5 Mg PHA 05/22/25 In Process (Antivert 12.5 Mg) 09:00 Nm Lexiscan Cardiolite NM 05/22/25 Logged 06:00 Npo After Midnight THERESA 05/21/25 Transmitted 16:13 Vital Signs Date Time Temp Pulse Resp B/P (MAP) Pulse Ox O2 Delivery O2 Flow Rate FiO2 05/21/25 12:24 98.1 71 11 147/76 100 Room Air* 0 21 05/21/25 11:06 98.1 76 12 140/78 100 Room Air* 0 21 05/21/25 10:32 98.2 89 18 149/75 99 Room Air* 0 21 05/21/25 10:29 98.2 89 18 149/75 99 Room Air 0 Medical Decision Making MDM MDM: Differential diagnosis: Rationale: Tests considered and ordered secondary to shared decision making include: labs, ECG and radiology Previous outside records reviewed: Old ER visits. Risk of complication and/or morbidity or mortality of patient management: None Medications-Per medication reconciliation Need for hospitalization: Patient does meet criteria for hospitalization. Need for emergency major/minor surgery: No There are no social concerns with this patient. Prescription drug management Prescriptions will include symptomatic care Patient's prior external medical records from other ER visits were reviewed by me as indicated. Prior testing and results from previous visits were reviewed. Prior tests were taken into account with medical decision making and resource utilization, independent historian/historians were used to obtain complete medical history. I independently interpreted the test that were performed, results were reviewed by me and considered findings on radiology if ordered. Medical management and examination interpretation discussions were had by me with other qualified healthcare professionals as indicated for the patient's care. 74-year-old male with chest pain, angina pain controlled admitting to Medicine for further care and evaluation DX & DISP Disposition: Inpatient Departure Impression: Primary Impression: Unstable angina Condition: Stable Referrals: CAITY GRANDE MD (PCP) SHANEKA ODEN MD May 21, 2025 16:20
[2025-05-21 16:45] LABS: CREATINE KINASE, TOTAL 46.0 U/L (21-232)
[2025-05-21 17:15] VITALS: O2SAT 98
[2025-05-21] MEDS: MAGNESIUM 2GM PREMIX 50ML 50 ML IV SCH (18:01)
[2025-05-21 19:18] VITALS: BP 133/68; PULSE 65; RESP 16; TEMP 97.5
[2025-05-21 20:00] VITALS: O2SAT 98
[2025-05-21] MEDS: ENOXAPARIN SODIUM 40 MG/0.4 ML SYRINGE SQ SCH (20:34)
[2025-05-21 22:23] LABS: CREATINE KINASE, TOTAL 43.0 U/L (21-232)
[2025-05-21 23:00] VITALS: BP 136/74; PULSE 62; RESP 16; TEMP 97.4
--- NOTE | 2025-05-22 03:02 | EKG ---
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
[2025-05-22 03:09] VITALS: BP 126/71; PULSE 64; RESP 18; TEMP 97.5
[2025-05-22 04:09] LABS: IMMATURE GRANULOCYTE ABSOLUTE 0.01 K/uL (0-1); NUCLEATED RED BLOOD CELLS 0.0 % (0.0-0.19); PLATELET COUNT (AUTO) 181 K/uL (130-400); RED BLOOD CELL COUNT(AUTO) 3.79 MIL/uL (4.50-6.20); RED CELL DISTRIBUTION WIDTH 11.7 % (11.0-15.5); WHITE BLOOD COUNT (AUTO) 6.3 K/uL (4.8-10.8)
[2025-05-22 04:21] LABS: CREATININE 0.6 mg/dL (0.5-1.3); GLOMERULAR FILTR. RATE CALC 100.0 mL/min (>90); GLUCOSE,RANDOM 115.0 mg/dL (70-105); SODIUM SERUM 137.0 mmol/L (136-145); UREA NITROGEN, BLOOD 11.0 mg/dL (7-18)
--- NOTE | 2025-05-22 07:17 | PN ---
[facility] Cardiology Progress Note CARDIOLOGY PROGRESS NOTE MAY 22, 2025 Problems: 1. Atypical Chest pain with normal troponins x3 and no acute ST changes on EKG 2. CAD with CT calcium score of 3028 March 2024 and normal Cardiolite stress test April 2024 3. Peripheral arterial disease status post previous multiple procedures with the PID specialists in [place] 4. Obstructive sleep apnea intolerant to CPAP 5. Hypertension 6. Dyslipidemia The patient is pain-free this morning. Blood pressure is 1 20-130 systolic. Heart rate is in the 60s the patient is afebrile. Potassium 3.9 BUN11 creatinine 0.6. White count 6.3 Hemoglobin 12.7 Platelet count [id number]. Patient continues on amlodipine aspirin atorvastatin carvedilol insulin scale and pantoprazole. Chest x-ray showed no effusions or infiltrates. 2D echocardiogram is pending. Lexiscan Cardiolite stress test is scheduled for today. I will check on results. CAITY GRANDE MD May 22, 2025 07:17
[2025-05-22 07:24] VITALS: BP 148/87; PULSE 60; RESP 20; TEMP 98.7
[2025-05-22] MEDS ORDERED: ENOXAPARIN SODIUM 40 MG/0.4 ML SYRINGE SQ SCH (09:00)
[2025-05-22] MEDS: REGADENOSON 0.4 MG/5 ML PF SYG IVP ONE (10:29)
[2025-05-22] MEDS: ASPIRIN 81 MG EC TAB PO SCH (10:36)
[2025-05-22] MEDS: amLODIPine 5 MG TAB PO SCH (10:36)
[2025-05-22 10:41] VITALS: O2SAT 97
[2025-05-22 11:30] VITALS: BP 123/70; PULSE 62; RESP 20; TEMP 97.9
--- NOTE | 2025-05-22 15:59 | HMCSR ---
APPROVED REPORT Height: 5 ft 10in Weight: 178 lbs TEST INDICATIONS Chest Pain The imaging protocol used to acquire images was Rest Tc-99m/stress Tc-99m 1 day Consent: The procedure was explained and understood by the patient. Informerd consent was witnessed Anisa Ruiz RN First, low dose rest was performed then high dose stress. RESTING DATA: The resting ekg shows: NSR Rest SPECT myocardial perfusion imaging was performed in supine position minutes following the intra venous injection of 11 mCi of Tc-99 Sestamibi. Time of rest injection: Date: 05/22/2025 Time of rest imaging: Date: 05/22/2025 PHARMACOLOGIC STRESS: Pharmacologic stress test was performed by injecting regadenoson 0.4 mg IV push followed by the intra venous injection of 30 mCi of Tc-99 Sestamibi. Time of stress injection: Date: 05/22/2025 Time of stress imaging: Date: 05/22/2025 Heart Rate at time of stress injection: 64 bpm. The images were gated to evaluate regional wall motion and calculate left ventricular ejection fracti on. STRESS DETAILS Reason for Termination: Infusion complete Stress Symptoms: Dyspnea; Flushed Max HR Achieved: 92 bpm % of APMHR Achieved: 75 Max Blood Pressure: 147/94 mmHg Stress ECG: NSR Conclusion Fixed apical defect Diaphragm attenuation artifact No ischemia LV ejection fraction 68% Normal LV wall motion Normal LV size at rest and stress No increased lung uptake
[2025-05-22 16:00] VITALS: BP 131/73; PULSE 69; RESP 20; TEMP 98.7
--- NOTE | 2025-05-22 16:37 | PN ---
[facility] PROGRESS NOTE Date of Service: May 22, 2025 Time of Service: 16:32 This is a 74-year-old male with underlying history of hypertension, hyperlipidemia, history of peripheral arterial disease with prior history of lower extremity angioplasty and stenting, who presented to the ER for further evaluation of nonresolving chest pain. Symptoms have been ongoing for the past two days, pain is located in the substernal region with associated symptoms of dyspepsia and reflux. Initially two days ago, pain was mild in intensity but this morning, pain was severe in intensity relieved by patient taking nitroglycerin. Pain on bedside interview currently is minimal and patient rates it as a 0-1/10 in severity. Patient states that he is followed by Dr. Ibrahim with Cardiology as outpatient. He has family history of significant coronary artery disease with multiple brothers in the family having history of heart attack. He has a previous history of cardiac CT, heart Saver screening done in 04/2024 with a calcium score noted to be at 3027.8. Patient states that he was he had a Lexiscan stress test following abnormal heart Saver results. Patient states that he was told that he did not need further testing following lexiscan study. Chest pain is worsened with positional activities. Patient denies any trauma to the chest. Denies any pleurisy either. Patient does report having previous history of significant peripheral arterial disease and has had angiogram and angioplasty done by Dr. Leon previous On presentation to the hospital, patient was noted to be afebrile with T-max of 98.2 F, heart rate of 89, blood pressure 149/75. Labs on presentation showed WBC count of 6800, hemoglobin of 14.0, platelet count of 210587. BMP showed sodium of 137, potassium 4.1, chloride of 97, BUN of eight, creatinine of 0.7, magnesium 1.8, high sensitivity troponin was noted to be negative at six. Will be admitted for further treatment and management, symptoms are concerning for unstable angina. SUBJECTIVE: 05/22/25: Patient was seen and examined in room 201. Patient was alert, awake and oriented. Patient is scheduled for Lexiscan today. Patient denies any current chest pain. patient denies any nausea and vomiting. Patient denies fever, chills. Patient denies any burning sensation in his epigastrium, retrosternal area. Pertinent labs- Trop I- 9.2>9.3, BNP-33. EKG- Increased OK REVIEW OF SYSTEMS CONSTITUTIONAL: Denies fevers, chills, or night sweats. No unintentional weight loss reported. NEUROLOGICAL: Denies headache, amaurosis fugax, motor weakness, sensory deficit, vertigo/spinning sensation, gait abnormalities, or tremors. ENT: No hearing loss, otalgia, otorrhea, rhinitis, rhinorrhea, hoarseness, or sore throat. CARDIOVASCULAR: Chest pain ongoing for the past two days and has worsened today, relieved with nitroglycerin PULMONARY: Denies any shortness of breath, cough, phlegm/sputum, hemoptysis, pleuritic chest pain. SLEEP: Denies morning headaches, daytime somnolence or napping. Denies difficulty falling asleep, staying asleep, waking from sleep. Denies knowledge of snoring. GASTROINTESTINAL: Denies any type of dysphagia to either liquids or solids. Denies nausea, vomiting, pyrosis, early satiety, abdominal pain, diarrhea, constipation, or changes in stool consistency or caliber. Denies coffee-ground emesis, hematemesis, hematochezia, or melanotic stools. GENITOURINARY: Denies frequency, urgency, nocturia, hematuria or incontinence (Storage/Irritative symptoms.) Low urinary stream, straining to void, urinary intermittency or hesitancy, splitting of the voiding stream, terminal dribbling. ENDOCRINOLOGIC: Denies polyuria, polydipsia, polyphagia or heat/cold intolerances. HEMATOLOGIC: Denies thrombophilia/previous clots, or coagulopathy/bleeding disorders. ONCOLOGIC: Denies personal history of malignancy. DERMATOLOGIC: Denies rashes or pruritus. PSYCHIATRIC: Denies any suicidal or homicidal ideation. Denies hallucinations. PHYSICAL EXAM GENERAL APPEARANCE: The patient is awake, alert, and oriented, in no acute cardiopulmonary distress. NEUROLOGICAL: Cranial nerves II-XII grossly intact. Motor is 5/5 in bilateral upper and lower extremities proximal to distal. No sensory deficits. HEENT: Face is symmetric. Pupils are equal and reactive. Extraocular movements are intact. NECK: Supple. No JVD. No thyromegaly. No submental, submandibular, pre- /postauricular, occipital or supraclavicular lymphadenopathy. CHEST: Normal chest expansion. No Telemetry. LUNGS: Absence of any rales, rhonchi or any wheezing. CARDIOVASCULAR: Regular. S1 and S2 normal. No appreciable rubs, murmurs or gallops. ABDOMEN: Soft, nontender, and nondistended. There is no rebound, voluntary guarding, or rigidity. : Deferred. No Nielsen. EXTREMITIES: Non-edematous and not cyanotic. No clubbing. Good capillary refill. SKIN: No skin breakdown. Vital Signs (last 8hr) Date Time Temp Pulse Resp B/P (MAP) Pulse Ox O2 Delivery O2 Flow Rate FiO2 05/22/25 16:00 98.8 69 20 131/73 99 Room Air 05/22/25 11:30 97.9 62 20 123/70 98 Room Air 05/22/25 10:41 97 Room Air* 0 21 05/22/25 10:37 148/87 LABS: Laboratory: Test 05/22/25 11:02 05/22/25 03:36 05/21/25 22:06 05/21/25 19:52 Range/Units Whole Blood Glucose 174 #H 70-110 MG/DL White Blood Count 6.3 4.8-10.8 K/uL Red Blood Count 3.79 L 4.50-6.20 MIL/uL Hemoglobin 12.7 L 14.0-18.0 g/dL Hematocrit 36.3 L 42-54 % Mean Corpuscular Volume 95.8 79-99 fL Mean Corpuscular Hemoglobin 33.5 H 27.0-33.0 pg Mean Corpuscular Hemoglobin Concent 35.0 32.0-36.0 g/dL Red Cell Distribution Width 11.7 11.0-15.5 % Platelet Count 181 130-400 K/uL Mean Platelet Volume 9.2 7.5-10.5 fL Immature Granulocyte % (Auto) 0.2 0-1 % Neutrophils (%) (Auto) 61.3 40.0-77.0 % Lymphocytes (%) (Auto) 25.1 21.0-51.0 % Monocytes (%) (Auto) 11.2 3.0-13.0 % Eosinophils (%) (Auto) 1.4 0.0-8.0 % Basophils (%) (Auto) 0.8 0.0-5.0 % Neutrophils # (Auto) 3.8 1.8-7.7 K/uL Lymphocytes # (Auto) 1.6 1.0-4.8 K/uL Monocytes # (Auto) 0.7 0.1-1.0 K/uL Eosinophils # (Auto) 0.09 0.00-0.70 K/uL Basophils # (Auto) 0.05 0.00-0.20 K/uL Absolute Immature Granulocyte (auto 0.01 0-1 K/uL Nucleated Red Blood Cells 0.0 0.0-0.19 % Sodium Level 137 136-145 mmol/L Potassium Level 3.9 3.5-5.1 mmol/L Chloride Level 98 L 101-111 mmol/L Carbon Dioxide Level 27 21-32 mmol/L Blood Urea Nitrogen 11 7-18 mg/dL Creatinine 0.6 0.5-1.3 mg/dL Glomerular Filtration Rate Calc 100 >90 mL/min Random Glucose 115 H 70-105 mg/dL Total Calcium 8.6 8.5-10.1 mg/dL Magnesium Level 2.00 1.80-2.40 mg/dL Total Creatine Kinase 43 21-232 U/L Troponin I High Sensitivity 9.3 4-75 ng/L Bedside Glucose Comment Notified Nurse Test 05/21/25 14:40 05/21/25 11:37 05/21/25 11:34 05/21/25 10:58 Range/Units Urine Color LIGHT-YELLOW YELLOW Urine Appearance CLEAR CLEAR Urine pH 7.0 5.0-8.0 Urine Specific Gore 1.008 1.001-1.031 Urine Protein NEGATIVE NEGATIVE mg/dL Urine Glucose (UA) NEGATIVE NEGATIVE mg/dL Urine Ketones 20 H NEGATIVE mg/dL Urine Occult Blood NEGATIVE NEGATIVE Urine Nitrate NEGATIVE NEGATIVE Urine Bilirubin NEGATIVE NEGATIVE mg/dL Urine Urobilinogen 0.2 0.2-1.0 mg/dL Urine Leukocyte Esterase NEGATIVE NEGATIVE Hemant/uL Urine RBC 0-1 0-1 /HPF Urine WBC 0-1 0-1 /HPF Urine Squamous Epithelial Cells RARE 0-2 /HPF Urine Other Crystals (Auto) 1 None Seen /HPF Urine Bacteria None None Seen /HPF Total Bilirubin 0.5 0.2-1.0 mg/dL Direct Bilirubin 0.2 0.0-0.3 mg/dL Aspartate Amino Transf (AST/SGOT) 17 10-37 U/L Alanine Aminotransferase (ALT/SGPT) 32 12-78 U/L Alkaline Phosphatase 63 50-136 U/L Total Protein 6.9 6.0-8.3 g/dL Albumin 4.0 3.5-5.0 g/dL Hemoglobin A1c 6.1 H 4.0-6.0 % Estimated Average Glucose (eAG) 128 H 70-126 mg/dL Triglycerides Level 44 30-200 mg/dL Cholesterol Level 142 <200 mg/dL LDL Cholesterol 45 0-99 mg/dL HDL Cholesterol 82 H 29-71 mg/dL Thyroid Stimulating Hormone (TSH) 0.59 0.36-3.74 uIU/mL B-Type Natriuretic Peptide 33 0-100 pg/mL Current Medications Medications (Trade) Dose Ordered Sig/Ann Route PRN Reason Start Time Stop Time Status Last Admin Dose Admin Acetaminophen (TYLenol 325MG TAB) 650 mg Q6H PRN PO MILD PAIN (1-3) 05/21/25 13:30 06/20/25 13:29 Amlodipine Besylate (NorvASC 5MG TAB) 5 mg DAILY PO 05/22/25 09:00 06/21/25 08:59 05/22/25 10:36 5 MG Aspirin (Aspirin 81mg Ec Tab) 81 mg DAILY PO 05/22/25 09:00 06/21/25 08:59 05/22/25 10:36 81 MG Atorvastatin Calcium (LIPItor 20MG) 20 mg HS PO 05/21/25 21:00 06/20/25 20:59 05/21/25 20:33 20 MG Carvedilol (Coreg 25MG) 25 mg BID PO 05/21/25 21:00 05/21/25 14:00 DC Carvedilol (Coreg 25MG) 25 mg BID PO 05/21/25 21:00 06/20/25 20:59 05/22/25 10:37 25 MG Docusate Sodium (COLace 100MG CAP) 100 mg BID PO 05/22/25 14:00 06/21/25 13:59 05/22/25 13:10 100 MG Enoxaparin Sodium (Lovenox) 40 mg DAILY SQ 05/22/25 09:00 05/21/25 19:54 DC Enoxaparin Sodium (Lovenox) 40 mg HS SQ 05/21/25 21:00 06/21/25 08:59 05/21/25 20:34 40 MG Insulin Human Regular (humuLIN R 100 UNIT/ML 3ML) INSULIN SLIDING SCAL... ACHS SQ 05/21/25 16:30 06/20/25 16:29 Magnesium Sulfate 50 ml @ 0 mls/hr PROTOCOL IV 05/21/25 14:30 06/20/25 14:29 05/21/25 18:01 25 MLS/HR Meclizine HCl (ANTIvert 25 mg) 25 mg DAILY PO 05/22/25 09:00 06/21/25 08:59 05/22/25 10:36 25 MG Nitroglycerin (Nitrostat) 0.4 mg AD PRN SL CHEST PAIN 05/21/25 13:30 06/20/25 13:29 Ondansetron HCl (zoFRAN 4MG INJ) 4 mg Q6H PRN IVP NAUSEA/VOMITING 05/21/25 13:30 06/20/25 13:29 Pantoprazole Sodium (PROTonix 40MG INJ) 40 mg Q24H IVP 05/21/25 13:30 06/20/25 13:29 05/22/25 13:09 40 MG DIAGNOSTICS / RADIOLOGY: [ ] ASSESSMENT: Chest pain with features of unstable angina, POA Family history of premature coronary artery disease, POA History of peripheral arterial disease with prior history of angioplasty and stenting of the lower extremities, POA Hypertension, POA Hyperlipidemia, POA Type 2 diabetes mellitus, POA PLAN: Patient will be admitted to cardiac telemetry floor Patient presenting with two day history of worsening chest pain concerning for unstable angina, initial cardiac troponin is negative, we will trend cardiac panel to rule out active ACS, patient has a previous abnormal heart saver study as well as has had a Lexiscan stress test as outpatient We will obtain 2D echocardiogram Continue with aspirin 81 mg daily, we will hold PAD dose Xarelto today in case of any plans for invasive evaluation/ cardiac catheterization this admission, will resume Xarelto if there is no plans of invasive evaluation tomorrow Continue with antihypertensives once medication list is available We will keep patient on Lipitor 40 mg daily Consultation with Cardiology will be requested We will maintain potassium greater than four and magnesium greater than two We will keep patient on sliding scale insulin a.c. and HS All labs will be repeated in the morning, we will await further evaluation by Cardiology for further cardiac workup We will keep patient on DVT prophylaxis with Lovenox, GI prophylaxis with Protonix Date of service: 05/21/2025 Plan of care was discussed with patient at bedside, Cristhian Haji MD Advanced Care Planning: Which of the following were discussed: Hospice care: Yes __ No _X_ Therapeutic options: Yes _X_ No __ Advance directives: Yes _X_ No __ Other discussions: Discussed with who?: Patient Voluntary nature of this service was explained to the patient? Yes _x_ No __ Amount of time spent: 20 minutes JANY JOHNSON MD May 22, 2025 16:37
--- NOTE | 2025-05-22 16:57 | DS ---
Discharge Summary Hospital Course Summary: This 74-year-old male with hypertension, hyperlipidemia, type 2 diabetes mellitus, peripheral arterial disease (status post angioplasty and stenting), obstructive sleep apnea (CPAP intolerant), and significant family history of premature coronary artery disease presented with two days of worsening substernal chest pain, relieved by nitroglycerin and resolved at the time of evaluation. Serial high-sensitivity troponins (three measurements) were normal, and ECGs showed no acute ST changes. Prior cardiac CT revealed a calcium score of 3028 (March 2024), and a Cardiolite stress test (April 2024) was normal. The patient was admitted with ongoing monitoring and trending of cardiac biom arkers to rule out acute coronary syndrome. A 2D echocardiogram was ordered to assess left ventricular function, and the patient remained pain-free and hemodynamically stable throughout admission. Cardiology was consulted and ordered Lexiscan stress myocardial perfusion test which demonstrated a fixed apical defect consistent with a diaphragm attenuation artifact, no evidence of ischemia, left ventricular ejection fraction of 68%, normal left ventricular wall motion, normal left ventricular size at rest and stress, and no increased lung uptake. Cardiology consultation confirmed atypical chest pain with normal troponins and no acute ECG changes, stable CAD with high calcium score and normal stress testing, and recommended discharge with continuation of current medications and close outpatient follow-up. Today patient was alert, awake and oriented. Patient underwent Lexiscan today. Patient denies any current chest pain. patient denies any nausea and vomiting. Patient denies fever, chills. Patient denies any burning sensation in his epigastrium, retrosternal area. Pertinent labs- Trop I- 9.2>9.3, BNP-33. EKG- Increased SC, with findings suggestive of old inferior wall infarct. today the patient was hemodynamically stable and being discharged after getting cleared from cardiology standpoint, with recommendations to continue current medications. and follow up with Dr. Ibrahim on 05/25/2025 at 9:00AM Fire Safety Manager(s): Cardiology consultation was done by [facility] (Dr. Walton and Dr. Ibrahim) Assessment: 1. Atypical Chest pain with normal troponins x3 and no acute ST changes on EKG 2. CAD with CT calcium score of 3028 March 2024 and normal Cardiolite stress test April 2024 3. Peripheral arterial disease status post previous multiple procedures with the PID specialists in [place] 4. Obstructive sleep apnea intolerant to CPAP 5. Hypertension 6. Dyslipidemia Plan The patient is pain-free this morning. Blood pressure is 1 20-130 systolic. Heart rate is in the 60s the patient is afebrile. Potassium 3.9 BUN11 creatinine 0.6. White count 6.3 Hemoglobin 12.7 Platelet count [id number]. Patient continues on amlodipine aspirin atorvastatin carvedilol insulin scale and pantoprazole. Chest x-ray showed no effusions or infiltrates. Lexiscan Cardiolite stress test results show Fixed apical defect, Diaphragm attenuation artifact, No ischemia, LV ejection fraction 68%, Normal LV wall motion, Normal LV size at rest and stress, No increased lung uptake Patient is cleared from cardiology standpoint, with recommendations to continue current medications. and follow up with Dr. Ibrahim on 05/25/2025 at 9:00AM. Procedure(s): [address] [address] IMAGING REPORT Signed PATIENT: MIGUEL ANGEL TUBBS MR#: [id number] : 1950 SEX: M AGE: 74 LOCATION: 2AH ORDER 1608 STATUS: ADM IN REPORT#: [id number] SERVICE 0600 REASON: CP ORDERING PHYSICIAN: JAMES DOMINGUEZ PROCEDURE: CARD ERLIN - NM LEXISCAN CARDIOLITE APPROVED REPORT Height: 5 ft 10in Weight: 178 lbs TEST INDICATIONS Chest Pain The imaging protocol used to acquire images was Rest Tc-99m/stress Tc-99m 1 day Consent: The procedure was explained and understood by the patient. Informerd consent was witnessed by iMke Ruiz RN First, low dose rest was performed then high dose stress. RESTING DATA: The resting ekg shows: NSR Rest SPECT myocardial perfusion imaging was performed in supine position minutes following the intravenous injection of 11 mCi of Tc-99 Sestamibi. Time of rest injection: Date: 05/22/2025 Time of rest imaging: Date: 05/22/2025 PHARMACOLOGIC STRESS: Pharmacologic stress test was performed by injecting regadenoson 0.4 mg IV push followed by the intravenous injection of 30 mCi of Tc-99 Sestamibi. Time of stress injection: Date: 05/22/2025 Time of stress imaging: Date: 05/22/2025 Heart Rate at time of stress injection: 64 bpm. The images were gated to evaluate regional wall motion and calculate left ventricular ejection fraction. STRESS DETAILS Reason for Termination: Infusion complete Stress Symptoms: Dyspnea; Flushed Max HR Achieved: 92 bpm % of APMHR Achieved: 75 Max Blood Pressure: 147/94 mmHg Stress ECG: NSR Conclusion Fixed apical defect Diaphragm attenuation artifact No ischemia LV ejection fraction 68% Normal LV wall motion Normal LV size at rest and stress No increased lung uptake DICTATED BY: CAITY IBRAHIM MD DATE: 05/22/25724 ELECTRONICALLY SIGNED BY: CAITY IBRAHIM MD DATE: 05/22/25 [address] [place] [id number] IMAGING REPORT Signed PATIENT: MIGUEL ANGEL TUBBS MR#: [id number] : 1950 SEX: M AGE: 74 LOCATION: [facility] ORDER 1053 STATUS: [facility] REPORT#: [id number] SERVICE 1052 REASON: cp ORDERING PHYSICIAN: SHANEKA ODEN MD PROCEDURE: CXR1VW - CHEST 1VW CHEST 1VW REASON: cp COMPARISON: None. FINDINGS: Single view of the chest was obtained. Lungs are clear. Heart size is normal. There is no pulmonary vascular congestion. Mediastinum and bony thorax appear unremarkable. IMPRESSION: 1. No acute cardiopulmonary process.. DICTATED BY: OLEKSANDR REEVES MD DATE: 05/21/25 1129 ELECTRONICALLY SIGNED BY: OLEKSANDR REEVES MD DATE: 05/21/25 113 2D-Echocardiogram Ultrasound was performed, Pending report Assessment/Plan: ASSESSMENT: Chest pain with features of unstable angina, POA Family history of premature coronary artery disease, POA History of peripheral arterial disease with prior history of angioplasty and roseanne nting of the lower extremities, POA Hypertension, POA Hyperlipidemia, POA Type 2 diabetes mellitus, POA Discharge Instructions: Follow up with primary care provider in 3-[address] Ibrahim on 05/25/2025 at 9:00A.M. [phone] Continue current medications. Continue heart healthy diet Light to moderate activity as tolerated, avoid strenuous exertion Monitor for symptoms like chest pain not relieved by nitroglycerin, shortness of breath, syncope or severe dizziness, palpitations or new arrhythmia, swelling, orthopnea, sudden weight gain and seek immediate medical attention in such scenario Home Medications: Reported Medications Amlodipine Besylate (Amlodipine Besylate) 5 Mg Tablet, 5 MG PO DAILY, TAB 05/21/25 Meclizine HCl (Meclizine HCl) 12.5 Mg Tablet, 25 MG PO DAILY, TAB 12/01/24 Rosuvastatin Calcium (Rosuvastatin Calcium) 10 Mg Tablet, 10 MG PO DAILY, TAB 12/01/24 [xarelto] No Conflict Check, 2.5 MG PO BID 11/04/24 Aspirin (Aspirin EC) 81 Mg Tablet., 81 MG PO AM, TAB 11/04/24 Metformin HCl (Metformin HCl) 500 Mg Tablet, 500 MG PO BID, TAB 11/04/24 Carvedilol (Carvedilol) 25 Mg Tablet, 25 MG PO BID, TAB 11/04/24 Continued Medications: Amlodipine Besylate (Amlodipine Besylate) 5 Mg Tablet 5 MG PO DAILY, TAB Aspirin (Aspirin EC) 81 Mg Tablet. 81 MG PO AM, TAB Carvedilol (Carvedilol) 25 Mg Tablet 25 MG PO BID, TAB Meclizine HCl (Meclizine HCl) 12.5 Mg Tablet 25 MG PO DAILY, TAB Metformin HCl (Metformin HCl) 500 Mg Tablet 500 MG PO BID, TAB Rosuvastatin Calcium (Rosuvastatin Calcium) 10 Mg Tablet 10 MG PO DAILY, TAB [xarelto] () 2.5 MG PO BID Time spent arranging discharge: 31-60 minutes ATTESTATION BY PHYSICIAN I have seen and examined the patient. I reviewed the documentation, medical decision making, and treatment plan as noted by the resident physician above. I agree with the findings and plan of care. MILO GAR MD, SHAJI MD May 22, 2025 16:57
--- NOTE | 2025-05-22 18:15 | NUR ---
Patient was discharge, all discharge documentation and personal items taken by patient. Patient informed to follow up with primary care provider in 3-[address] Ibrahim on 05/25/2025 at 9:00A.M.. No new scripts provided, IV and telemetry pack were removed by student activities director Amos, patient ambulated out of facility accompanied by Amos GARCIA.
--- NOTE | 2025-05-23 01:31 | HMCSR ---
APPROVED REPORT EXAM: Two-dimensional and M-mode echocardiogram with Doppler and color Doppler. INDICATION ICD: Chest pain, assess left ventricular ejection fraction, rule out wall motion abnormalities 2D Dimensions RVDd3.8 cmLVEF(%)58.2 (>50%)LA ESV INDEX (BP)20.52 mL/m2 IVSd1.1 (0.7-1.1cm)FS(%)31 % LVDd4.7 (3.8-5.6cm)LA (2D)4.6 (1.6-4.0cm) PWd0.9 (0.7-1.1cm)Ao Root(2D)3.7 (2.0-3.7cm) IVSs1.4 cmLVOT diam2.1 (1.8-2.4cm) LVDs3.2 (2.5-4.0cm) PWs1.4 cm Deformation Strain Apical 4-16.9 % Apical 2-16.2 % Apical 3-16.4 % Global Strain-16.5 % M-Mode Dimensions EPSS0.4 cm LA (MM)4.9 (1.6-4.0cm) Ao Root(MM)3.4 (2.0-3.7cm) Aortic Valve AoV Vmax1.5 m/Bala Peak GR8.5 mmHgLVOT Vmax0.8 m/s AoV VTI0.3 mAo Mean GR5.1 mmHgLVOT VTI0.18 m HERI (VMAX)1.90 cm2AVA (VTI) 2.0 cm2 Mitral Valve MV E Vmax54.9 cm/sDECEL Cugj075 ms MV A Vmax80.6 cm/sP 1/2 T48 ms E/A ratio0.7MVA (PHT)4.6 cm2 TDI E/E' Medial9.9E/E' Lateral9.6 Medial E' Peak V5.56 cm/sLateral E' Peak V5.69 cm/s Pulmonary Valve PV Vmax0.9 m/sPI End Meg. Robert 100.4 cm/s PV Peak GR2.9 mmHg Left Ventricle The left ventricle is normal size. There is normal LV segmental wall motion. Mild concentric left leif tricular hypertrophy. Left ventricular systolic function is low normal, estimated LVEF is 50 to 55%. Grade 1 diastolic dysfunction. Right Ventricle The right ventricle is normal size. The right ventricular systolic function is normal. Atria The left atrium size is normal. The right atrium size is normal. Aortic Valve Aortic valve is trileaflet. The leaflets are mildly thickened and calcified. Trace aortic regurgitati on. There is no aortic valvular stenosis. Mitral Valve Mild mitral annular calcification is noted. The leaflets are mildly thickened and calcified. Trace mi tral regurgitation. There is no mitral valve stenosis. Tricuspid Valve The tricuspid valve is normal in structure. Trace tricuspid regurgitation. RVSP is normal. Pulmonic Valve Pulmonic valve is not well visualized. Great Vessels The aortic root is normal in size. The IVC is normal in size and collapses >50% with inspiration. Pericardium There is no pericardial effusion. Other Information Quality : Adequate Conclusion Mild concentric left ventricular hypertrophy. There is normal LV segmental wall motion. Left ventricular systolic function is low normal, estimated LVEF is 50 to 55%. Grade 1 diastolic dysfunction. Trace aortic regurgitation. Trace mitral regurgitation. Trace tricuspid regurgitation. PASP is normal. There is no pericardial effusion.
== END 2025-05-22 18:00 | disposition home or self-care (01) | DRG 303 ==
LOC: EDH 10:28 → EDHIP 13:21 → 2AH 16:15
PROVIDERS: ADMIT Internal Medicine; ATTEND Internal Medicine
PROC: 4A02XM4 Measurement of Cardiac Total Activity, External Approach (ICD-10-PCS; principal; 2025-05-22)
PROC: 3E073KZ Introduction of Other Diagnostic Substance into Coronary Artery, Percutaneous Approach (ICD-10-PCS; 2025-05-22)
DX: I25.110 Atherosclerotic heart disease of native coronary artery with unstable angina pectoris (principal); I10 Essential (primary) hypertension; G47.33 Obstructive sleep apnea (adult) (pediatric); Z96.641 Presence of right artificial hip joint; I48.91 Unspecified atrial fibrillation; I44.0 Atrioventricular block, first degree; E11.51 Type 2 diabetes mellitus with diabetic peripheral angiopathy without gangrene; E78.00 Pure hypercholesterolemia, unspecified; Z79.01 Long term (current) use of anticoagulants; Z79.82 Long term (current) use of aspirin; Z79.84 Long term (current) use of oral hypoglycemic drugs; Z79.899 Other long term (current) drug therapy; Z82.49 Family history of ischemic heart disease and other diseases of the circulatory system; Z83.3 Family history of diabetes mellitus; Z90.49 Acquired absence of other specified parts of digestive tract
CPT/HCPCS: 36415; 71045; 78452; 80048; 80061; 80076; 81001; 82550; 82948; 83036; 83735; 83880; 84443; 84484; 85025; 93005; 93017; 93306; 93356; 99285; A9500; G0378; J1650; J1815; J2470; J2785; J3475